=== PATIENT | female | born 1975 | race Caucasian/White ===

== ENCOUNTER 2016-08-02 15:22 | Emergency (ER) | payer OTHER ==
--- NOTE | 2016-08-02 18:35 | ED NURSING NOTES ---
Clinical Report - Nurses [facility] [place] [address] 08/02/2016 15:24 Patient: LORA ROJAS TRIAGE Triage time 15:30. Acuity: LEVEL 3. Chief Complaint: LEFT LOWER EXTREMITY PAIN and SWELLING. Location of symptoms- left leg. Alert. --15:34 Estela Mock R.N. 15:30 08/02/16. BP: 137/92. HR: 110. RR: 20. O2 saturation: 99%. Temp: 98.3 F. Pain level now 01/12. --15:34 Estela Mock R.N. Weight: 92.9 kg stated. Height/Length: 64 inches Per Patient. BMI: 35.2. --15:33 Estela Mock R.N. Medications None. --15:32 Estela Mock R.N. Allergies None. --15:32 Estela Mock R.N. History Arrived by private vehicle. Historian: patient. Primary physician (none). ( Pt had trauma to Left ankle about 10 days ago and than healed but on the flight home her leg swelled and now continues to have pain). She has had swelling. --15:34 Estela Mock R.N. PROBLEMS: no known problems. ADDITIONAL SURGERIES: Bilateral Tubal Ligation. Leg surgery. --15:33 Estela Mock R.N. PHYSICAL ASSESSMENT GENERAL / NEURO / PSYCH: Alert. Appears anxious. EXTREMITIES: Limited ROM present. Calf tenderness. Left leg: tenderness, swelling and erythema. SKIN: Skin is warm and dry. --15:35 Estela Mock R.N. EXTREMITIES: ( denies SOB or chest pain). --15:35 Estela Mock R.N. NURSING PROGRESS NOTES Patient identifiers checked. Call light placed in reach. Patient ready for evaluation- PA notified. --15:35 Estela Mock R.N. Patient waiting for (Ultra sound). ( Resting quietly awaiting ultra sound). --17:08 Estela Mock R.N. The patient is resting quietly. Overall patient status is the same. GENERAL / NEURO / PSYCH: Alert. Call light placed in reach. --18:15 Estela Mock R.N. 18:14 08/02/16. BP: 148/81. HR: 83. RR: 16. O2 saturation: 100%. Pain level now 7/10. --18:15 Estela Mock R.N. Patient waiting for disposition. --18:15 Estela Mock R.N. DISPOSITION / DISCHARGE 18:40 08/02/16. Departure time: 183. Condition at departure: improved and stable. No learning barriers present. Discharge instructions provided and reviewed with the patient. Reviewed medication(s) side effects, precautions, dosing and course information. Patient verbalized understanding. Written instructions provided in Zimbabwean. The patient was discharged by the nurse practitioner. She was discharged home and accompanied by spouse. She left the Emergency Department ambulatory and via private vehicle. Spouse driving. --18:41 Paola Barksdale R.N. 18:39 08/02/16. BP: 124/76. HR: 81. RR: 16. O2 saturation: 100% on room air. Pain level now 6/10. --18:41 Paola Barksdale R.N. Locked/Released at 08/02/2016 18:58 by Paola Barksdale R.N.
--- NOTE | 2016-08-02 18:35 | ED ORDER SUMMARY ---
..... Patient: LORA ROJAS OrderSheet [facility] VisitID: [id number] [address] [place] [address] 41y, F Registration Date/Time: 08/02/2016 ORDER SHEET Weight: 92.9 kg (stated) Allergies: None GENERAL ORDERS: Tibia/Fibula Left Urgent (15:37 08/02/2016 HBivens A.R.N.P.) (Ack 15:49 LTapper) (18:05 LTapper) US Venous Left Urgent (15:37 08/02/2016 HBivens A.R.N.P.) (Ack 15:49 LTapper) (18:05 LTapper) MEDICATION ORDERS: IV FLUIDS: ORDER SHEET NOTES: [Electronically signed by Paola BarksdaleNAndrew (18:58 08/02/2016)] [Electronically signed by Stephanie Sanchez.R.N.P. (18:58 08/02/2016)] [Electronically locked/signed by Paola BarksdaleNAndrew (18:58 08/02/2016)]
--- NOTE | 2016-08-02 18:35 | ED ORDER SUMMARY ---
..... Patient: LORA ROJAS OrderSheet [facility] VisitID: [id number] [address] [place] [address] 41y, F Registration Date/Time: 08/02/2016 ORDER SHEET Weight: 92.9 kg (stated) Allergies: None GENERAL ORDERS: Tibia/Fibula Left Urgent (15:37 08/02/2016 HBivens A.R.N.P.) (Ack 15:49 LTapper) (18:05 LTapper) US Venous Left Urgent (15:37 08/02/2016 HBivens A.R.N.P.) (Ack 15:49 LTapper) (18:05 LTapper) MEDICATION ORDERS: IV FLUIDS: ORDER SHEET NOTES: [Electronically signed by Paola BarksdaleNAndrew (18:58 08/02/2016)] [Electronically signed by Stephanie Sanchez.R.N.P. (18:58 08/02/2016)] [Electronically locked/signed by Paola BarksdaleNAndrew (18:58 08/02/2016)]
--- NOTE | 2016-08-02 18:35 | ED CLINICAL REPORT ---
Clinical Report - Physicians/Mid Levels [facility] [address] [place] [address] 08/02/2016 15:24 Patient: LORA ROJAS Time Seen: 15:33; initial patient contact, initial documentation, patient care assumed. Arrived- By private vehicle. Historian- patient. HISTORY OF PRESENT ILLNESS Chief Complaint: LOWER EXTREMITY PAIN and SWELLING. This started about 5 days ago and is still present. Not relieved by anything- worsened by walking. Severity is described as being moderate. The quality is noted to be "pain". No radiation. Symptoms located in the area of the left leg. The patient has had swelling, but not had redness. No difficulty walking. No bladder dysfunction, bowel dysfunction, sensory loss or motor loss. ( was on vacation approx x10 days ago, and hurt lower leg in shower, then x5 days ago flew home, since flight leg has been swollen with increased pain). Patient notes an injury. Mechanism of injury- (leg got twisted under or around shower door). (hotel). Similar symptoms previously: None. Recent medical care: Not recently seen/assessed. REVIEW OF SYSTEMS No chest pain or difficulty breathing. All systems otherwise negative, except as recorded above. PAST HISTORY See nurses notes. ( PROBLEMS: no known problems. ADDITIONAL SURGERIES: Bilateral Tubal Ligation. Leg surgery. --15:33 Estela Mock, RAndrewN.). SOCIAL HISTORY Never smoker. No alcohol use or drug use. No recent travel. Is a local resident. FAMILY HISTORY Negative. ADDITIONAL NOTES The nursing notes have been reviewed with agreement regarding the chief complaint, HPI, ROS, PMH and patient medications and allergies. PHYSICAL EXAM Vital Signs: 08/02/2016 15:30 BP: 137/92. HR: 110. RR: 20. O2 saturation: 99%. Temp: 98.3 F. Have been reviewed as normal and appear to be correct. Appearance: Alert. Oriented X3. No acute distress. Eyes: Pupils equal, round and reactive to light. Eyes normal inspection. Neck: Normal inspection. Neck supple. CVS: Normal heart rate and rhythm. Heart sounds normal. Respiratory: No respiratory distress. Breath sounds normal. Back: Normal inspection. No tenderness. ROM normal. Skin: Skin intact. Skin warm and dry. Normal skin color. Normal skin turgor. Extremities: Left leg: ecchymosis and mild tenderness located in the medial aspect of mid leg. Neurovascular intact distally. (healing good size contusion to leg, yellow/green in color with tenderness, no obvious swelling noted compared to other leg). No erythema, swelling, laceration, abrasion or puncture wound. No foreign body or deformity. No limitation of weight bearing. Lower extremities exhibit normal ROM. No lower extremity edema. Extremities otherwise negative. Gait: Normal gait. Neuro: Oriented X 3. No motor deficit. No sensory deficit. LABS, X-RAYS, AND EKG X-Rays: X-rays are normal and reveal no acute disease (and dr mcintosh). Left tib/fib negative. The X-rays were independently viewed by me. Lower Extremity Sonography: Negative study. verbal report given by [employer] Adriana no dvt normal us. PROGRESS AND PROCEDURES Patient counseled in person regarding the patient's stable condition, test results and diagnosis. 1820. Differential Diagnosis: Other possible considerations: fx, dvt, contusion. Above considerations are based on history, physical exam, X-Ray data and other information. Differential diagnosis was discussed with patient. Disposition: Discharged home in good and unchanged condition (18:35). Condition: good and stable. CLINICAL IMPRESSION Single contusion to the left lower leg.No hematoma or skin abrasion. INSTRUCTIONS Warnings: GENERAL WARNINGS: Return or contact your physician immediately if your condition worsens or changes unexpectedly, if not improving as expected, or if other problems arise. Specifically return if problem worsens. Prescription Medications: Ultram 50 mg tablets: take 1-2 orally every 6 hours as needed for pain. Dispense twenty (20). No refills. Substitution is permissible. Follow-up: Follow up with your doctor in about one week as needed. Call for an appointment. Summary of care provided to patient. Understanding of the discharge instructions verbalized by patient. (Electronically signed by Stephanie Sanchez A.R.N.P. 08/02/2016 18:58)
--- NOTE | 2016-08-02 18:35 | ED CLINICAL REPORT ---
Clinical Report - Physicians/Mid Levels [facility] [address] [place] [address] 08/02/2016 15:24 Patient: LORA ROJAS Time Seen: 15:33; initial patient contact, initial documentation, patient care assumed. Arrived- By private vehicle. Historian- patient. HISTORY OF PRESENT ILLNESS Chief Complaint: LOWER EXTREMITY PAIN and SWELLING. This started about 5 days ago and is still present. Not relieved by anything- worsened by walking. Severity is described as being moderate. The quality is noted to be "pain". No radiation. Symptoms located in the area of the left leg. The patient has had swelling, but not had redness. No difficulty walking. No bladder dysfunction, bowel dysfunction, sensory loss or motor loss. ( was on vacation approx x10 days ago, and hurt lower leg in shower, then x5 days ago flew home, since flight leg has been swollen with increased pain). Patient notes an injury. Mechanism of injury- (leg got twisted under or around shower door). (hotel). Similar symptoms previously: None. Recent medical care: Not recently seen/assessed. REVIEW OF SYSTEMS No chest pain or difficulty breathing. All systems otherwise negative, except as recorded above. PAST HISTORY See nurses notes. ( PROBLEMS: no known problems. ADDITIONAL SURGERIES: Bilateral Tubal Ligation. Leg surgery. --15:33 Estela Mock, RAndrewN.). SOCIAL HISTORY Never smoker. No alcohol use or drug use. No recent travel. Is a local resident. FAMILY HISTORY Negative. ADDITIONAL NOTES The nursing notes have been reviewed with agreement regarding the chief complaint, HPI, ROS, PMH and patient medications and allergies. PHYSICAL EXAM Vital Signs: 08/02/2016 15:30 BP: 137/92. HR: 110. RR: 20. O2 saturation: 99%. Temp: 98.3 F. Have been reviewed as normal and appear to be correct. Appearance: Alert. Oriented X3. No acute distress. Eyes: Pupils equal, round and reactive to light. Eyes normal inspection. Neck: Normal inspection. Neck supple. CVS: Normal heart rate and rhythm. Heart sounds normal. Respiratory: No respiratory distress. Breath sounds normal. Back: Normal inspection. No tenderness. ROM normal. Skin: Skin intact. Skin warm and dry. Normal skin color. Normal skin turgor. Extremities: Left leg: ecchymosis and mild tenderness located in the medial aspect of mid leg. Neurovascular intact distally. (healing good size contusion to leg, yellow/green in color with tenderness, no obvious swelling noted compared to other leg). No erythema, swelling, laceration, abrasion or puncture wound. No foreign body or deformity. No limitation of weight bearing. Lower extremities exhibit normal ROM. No lower extremity edema. Extremities otherwise negative. Gait: Normal gait. Neuro: Oriented X 3. No motor deficit. No sensory deficit. LABS, X-RAYS, AND EKG X-Rays: X-rays are normal and reveal no acute disease (and dr mcintosh). Left tib/fib negative. The X-rays were independently viewed by me. Lower Extremity Sonography: Negative study. verbal report given by [employer] Adriana no dvt normal us. PROGRESS AND PROCEDURES Patient counseled in person regarding the patient's stable condition, test results and diagnosis. 1820. Differential Diagnosis: Other possible considerations: fx, dvt, contusion. Above considerations are based on history, physical exam, X-Ray data and other information. Differential diagnosis was discussed with patient. Disposition: Discharged home in good and unchanged condition (18:35). Condition: good and stable. CLINICAL IMPRESSION Single contusion to the left lower leg.No hematoma or skin abrasion. INSTRUCTIONS Warnings: GENERAL WARNINGS: Return or contact your physician immediately if your condition worsens or changes unexpectedly, if not improving as expected, or if other problems arise. Specifically return if problem worsens. Prescription Medications: Ultram 50 mg tablets: take 1-2 orally every 6 hours as needed for pain. Dispense twenty (20). No refills. Substitution is permissible. Follow-up: Follow up with your doctor in about one week as needed. Call for an appointment. Summary of care provided to patient. Understanding of the discharge instructions verbalized by patient. (Electronically signed by Stephanie Sanchez A.R.N.P. 08/02/2016 18:58)
--- NOTE | 2016-08-02 18:35 | ED NURSING NOTES ---
Clinical Report - Nurses [facility] [place] [address] 08/02/2016 15:24 Patient: LORA ROJAS TRIAGE Triage time 15:30. Acuity: LEVEL 3. Chief Complaint: LEFT LOWER EXTREMITY PAIN and SWELLING. Location of symptoms- left leg. Alert. --15:34 Estela Mock R.N. 15:30 08/02/16. BP: 137/92. HR: 110. RR: 20. O2 saturation: 99%. Temp: 98.3 F. Pain level now 01/12. --15:34 Estela Mock R.N. Weight: 92.9 kg stated. Height/Length: 64 inches Per Patient. BMI: 35.2. --15:33 Estela Mock R.N. Medications None. --15:32 Estela Mock R.N. Allergies None. --15:32 Estela Mock R.N. History Arrived by private vehicle. Historian: patient. Primary physician (none). ( Pt had trauma to Left ankle about 10 days ago and than healed but on the flight home her leg swelled and now continues to have pain). She has had swelling. --15:34 Estela Mock R.N. PROBLEMS: no known problems. ADDITIONAL SURGERIES: Bilateral Tubal Ligation. Leg surgery. --15:33 Estela Mock R.N. PHYSICAL ASSESSMENT GENERAL / NEURO / PSYCH: Alert. Appears anxious. EXTREMITIES: Limited ROM present. Calf tenderness. Left leg: tenderness, swelling and erythema. SKIN: Skin is warm and dry. --15:35 Estela Mock R.N. EXTREMITIES: ( denies SOB or chest pain). --15:35 Estela Mock R.N. NURSING PROGRESS NOTES Patient identifiers checked. Call light placed in reach. Patient ready for evaluation- PA notified. --15:35 Estela Mock R.N. Patient waiting for (Ultra sound). ( Resting quietly awaiting ultra sound). --17:08 Estela Mock R.N. The patient is resting quietly. Overall patient status is the same. GENERAL / NEURO / PSYCH: Alert. Call light placed in reach. --18:15 Estela Mock R.N. 18:14 08/02/16. BP: 148/81. HR: 83. RR: 16. O2 saturation: 100%. Pain level now 7/10. --18:15 Estela Mock R.N. Patient waiting for disposition. --18:15 Estela Mock R.N. DISPOSITION / DISCHARGE 18:40 08/02/16. Departure time: 183. Condition at departure: improved and stable. No learning barriers present. Discharge instructions provided and reviewed with the patient. Reviewed medication(s) side effects, precautions, dosing and course information. Patient verbalized understanding. Written instructions provided in Chinese. The patient was discharged by the nurse practitioner. She was discharged home and accompanied by spouse. She left the Emergency Department ambulatory and via private vehicle. Spouse driving. --18:41 Paola Barksdale R.N. 18:39 08/02/16. BP: 124/76. HR: 81. RR: 16. O2 saturation: 100% on room air. Pain level now 6/10. --18:41 Paola Braksdale R.N. Locked/Released at 08/02/2016 18:58 by Paola Barksdale R.N.
--- NOTE | 2016-08-02 18:59 | ED DISCHARGE INSTRUCTIONS ---
Patient: LORA ROJAS General Instructions [facility] VisitID: [id number] [place] [address] 41y, F Registration Date/Time: 08/02/2016 Single contusion to the left lower leg.No hematoma or skin abrasion. INSTRUCTIONS Warnings: GENERAL WARNINGS: Return or contact your physician immediately if your condition worsens or changes unexpectedly, if not improving as expected, or if other problems arise. Specifically return if problem worsens. Prescription Medications: Ultram 50 mg tablets: take 1-2 orally every 6 hours as needed for pain. Dispense twenty (20). No refills. Substitution is permissible. Follow-up: Follow up with your doctor in about one week as needed. Call for an appointment. Summary of care provided to patient. Understanding of the discharge instructions verbalized by patient. ADDITIONAL INFORMATION Contusion:Lower Extremity You have a CONTUSION of your LOWER extremity (leg, knee, ankle, foot, or toes). This causes local pain, swelling and sometimes bruising. There are no broken bones. This injury may take from a few days to a few weeks to heal. Home Care: 1) Keep your leg elevated to reduce pain and swelling. When sleeping, place a pillow under the injured leg. When sitting, support the injured leg so it is level with your waist. This is very important during the first 48 hours. 2) If CRUTCHES have been advised, do not bear full weight on the injured leg until you can do so without pain. You may return to sports when you are able to hop and run on the injured leg without pain. 3) Apply an ice pack (ice cubes in a plastic bag, wrapped in a towel) over the injured area for 20 minutes every 1-2 hours the first day for pain relief. Continue this 3-4 times a day until the pain and swelling goes away. 4) You may use acetaminophen (Tylenol) or ibuprofen (Motrin, Advil) to control pain, unless another pain medicine was prescribed. [ NOTE : If you have chronic liver or kidney disease or ever had a stomach ulcer or GI bleeding, talk with your doctor before using these medicines.] Follow Up with your doctor or this facility if you are not starting to improve within the next THREE days. [NOTE: If X-rays were taken, they will be reviewed by a radiologist. You will be notified of any new findings that may affect your care.] Get Prompt Medical Attention if any of the following occur: -- Pain or swelling increases -- Toes become cold, blue, numb or tingly -- Redness, warmth or drainage from the skin Tramadol Hydrochloride Oral tablet What is this medicine? TRAMADOL (TRA ma dole) is a pain reliever. It is used to treat moderate to severe pain in adults. How should I use this medicine? Take this medicine by mouth with a full glass of water. Follow the directions on the prescription label. If the medicine upsets your stomach, take it with food or milk. Do not take more medicine than you are told to take. Talk to your well logger regarding the use of this medicine in children. Special care may be needed. What side effects may I notice from receiving this medicine? Side effects that you should report to your doctor or health direct care worker as soon as possible: allergic reactions like skin rash, itching or hives, swelling of the face, lips, or tongue breathing difficulties, wheezing confusion itching light headedness or fainting spells redness, blistering, peeling or loosening of the skin, including inside the mouth seizures Side effects that usually do not require medical attention (report to your doctor or health direct care worker if they continue or are bothersome): constipation dizziness drowsiness headache nausea, vomiting What may interact with this medicine? Do not take this medicine with any of the following medications: MAOIs like Carbex, Eldepryl, Marplan, Nardil, and Parnate This medicine may also interact with the following medications: alcohol or medicines that contain alcohol antihistamines benzodiazepines bupropion carbamazepine or oxcarbazepine clozapine cyclobenzaprine digoxin furazolidone linezolid medicines for depression, anxiety, or psychotic disturbances medicines for migraine headache like almotriptan, eletriptan, frovatriptan, naratriptan, rizatriptan, sumatriptan, zolmitriptan medicines for pain like pentazocine, buprenorphine, butorphanol, meperidine, nalbuphine, and propoxyphene medicines for sleep muscle relaxants naltrexone phenobarbital phenothiazines like perphenazine, thioridazine, chlorpromazine, mesoridazine, fluphenazine, prochlorperazine, promazine, and trifluoperazine procarbazine warfarin What if I miss a dose? If you miss a dose, take it as soon as you can. If it is almost time for your next dose, take only that dose. Do not take double or extra doses. Where should I keep my medicine? Keep out of the reach of children. Store at room temperature between 15 and 30 degrees C (59 and 86 degrees F). Keep container tightly closed. Throw away any unused medicine after the expiration date. What should I tell my health care provider before I take this medicine? They need to know if you have any of these conditions: brain tumor depression drug abuse or addiction head injury if you frequently drink alcohol containing drinks kidney disease or trouble passing urine liver disease lung disease, asthma, or breathing problems seizures or epilepsy suicidal thoughts, plans, or attempt; a previous suicide attempt by you or a family member an unusual or allergic reaction to tramadol, codeine, other medicines, foods, dyes, or preservatives or trying to get breast-feeding What should I watch for while using this medicine? Tell your doctor or health direct care worker if your pain does not go away, if it gets worse, or if you have new or a different type of pain. You may develop tolerance to the medicine. Tolerance means that you will need a higher dose of the medicine for pain relief. Tolerance is normal and is expected if you take this medicine for a long time. Do not suddenly stop taking your medicine because you may develop a severe reaction. Your body becomes used to the medicine. This does NOT mean you are addicted. Addiction is a behavior related to getting and using a drug for a non-medical reason. If you have pain, you have a medical reason to take pain medicine. Your doctor will tell you how much medicine to take. If your doctor wants you to stop the medicine, the dose will be slowly lowered over time to avoid any side effects. You may get drowsy or dizzy. Do not drive, use machinery, or do anything that needs mental alertness until you know how this medicine affects you. Do not stand or sit up quickly, especially if you are an older patient. This reduces the risk of dizzy or fainting spells. Alcohol can increase or decrease the effects of this medicine. Avoid alcoholic drinks. You may have constipation. Try to have a bowel movement at least every 2 to 3 days. If you do not have a bowel movement for 3 days, call your doctor or health direct care worker. Your mouth may get dry. Chewing sugarless gum or sucking hard candy, and drinking plenty of water may help. Contact your doctor if the problem does not go away or is severe. You have been given the following additional information: Contusion, Lower Extremity Tramadol Hydrochloride Oral tablet (Electronically signed by Stephanie Sanchez A.R.NAndrewP. 08/02/2016 18:58)
--- NOTE | 2016-08-02 18:59 | ED MAR SUMMARY ---
..... Medication Administration Record [facility] [address] [place], [place] [id number] Patient: LORA ROJAS Visit ID: [id number] 41y, F Weight: 92.9 kg Height/Length: 64 in BMI: 35.2 ALLERGIES: None
--- NOTE | 2016-08-02 18:59 | ED MAR SUMMARY ---
..... Medication Administration Record [facility] [address] [place], [place] [id number] Patient: LORA ROJAS Visit ID: [id number] 41y, F Weight: 92.9 kg Height/Length: 64 in BMI: 35.2 ALLERGIES: None
--- NOTE | 2016-08-02 18:59 | ED MED RECONCILIATION SUMMARY ---
Patient: LOAR ROJAS Medication Reconciliation Report [facility] VisitID: [id number] [address] [place] [address] 41y, F Registration Date/Time: 08/02/2016 Weight: 92.9 kg Height/Length: 64 in. BMI: 35.2 ALLERGIES: None The patient's Home Medications are listed below: NONE. The source(s) of the original Home Medication information: Not obtained. The following Medications were given to the patient in the Emergency Department: None. The following Medications were prescribed to the patient: Ultram 50 mg tablets: take 1-2 orally every 6 hours as needed for pain. Dispense twenty (20). No refills. Substitution is permissible. -- Stephanie Sanchez A.R.N.P.
--- NOTE | 2016-08-02 18:59 | ED DISCHARGE INSTRUCTIONS ---
Patient: LORA ROJAS General Instructions [facility] VisitID: [id number] [place] [address] 41y, F Registration Date/Time: 08/02/2016 Single contusion to the left lower leg.No hematoma or skin abrasion. INSTRUCTIONS Warnings: GENERAL WARNINGS: Return or contact your physician immediately if your condition worsens or changes unexpectedly, if not improving as expected, or if other problems arise. Specifically return if problem worsens. Prescription Medications: Ultram 50 mg tablets: take 1-2 orally every 6 hours as needed for pain. Dispense twenty (20). No refills. Substitution is permissible. Follow-up: Follow up with your doctor in about one week as needed. Call for an appointment. Summary of care provided to patient. Understanding of the discharge instructions verbalized by patient. ADDITIONAL INFORMATION Contusion:Lower Extremity You have a CONTUSION of your LOWER extremity (leg, knee, ankle, foot, or toes). This causes local pain, swelling and sometimes bruising. There are no broken bones. This injury may take from a few days to a few weeks to heal. Home Care: 1) Keep your leg elevated to reduce pain and swelling. When sleeping, place a pillow under the injured leg. When sitting, support the injured leg so it is level with your waist. This is very important during the first 48 hours. 2) If CRUTCHES have been advised, do not bear full weight on the injured leg until you can do so without pain. You may return to sports when you are able to hop and run on the injured leg without pain. 3) Apply an ice pack (ice cubes in a plastic bag, wrapped in a towel) over the injured area for 20 minutes every 1-2 hours the first day for pain relief. Continue this 3-4 times a day until the pain and swelling goes away. 4) You may use acetaminophen (Tylenol) or ibuprofen (Motrin, Advil) to control pain, unless another pain medicine was prescribed. [ NOTE : If you have chronic liver or kidney disease or ever had a stomach ulcer or GI bleeding, talk with your doctor before using these medicines.] Follow Up with your doctor or this facility if you are not starting to improve within the next THREE days. [NOTE: If X-rays were taken, they will be reviewed by a radiologist. You will be notified of any new findings that may affect your care.] Get Prompt Medical Attention if any of the following occur: -- Pain or swelling increases -- Toes become cold, blue, numb or tingly -- Redness, warmth or drainage from the skin Tramadol Hydrochloride Oral tablet What is this medicine? TRAMADOL (TRA ma dole) is a pain reliever. It is used to treat moderate to severe pain in adults. How should I use this medicine? Take this medicine by mouth with a full glass of water. Follow the directions on the prescription label. If the medicine upsets your stomach, take it with food or milk. Do not take more medicine than you are told to take. Talk to your application support engineer regarding the use of this medicine in children. Special care may be needed. What side effects may I notice from receiving this medicine? Side effects that you should report to your doctor or health personal caregiver as soon as possible: allergic reactions like skin rash, itching or hives, swelling of the face, lips, or tongue breathing difficulties, wheezing confusion itching light headedness or fainting spells redness, blistering, peeling or loosening of the skin, including inside the mouth seizures Side effects that usually do not require medical attention (report to your doctor or health personal caregiver if they continue or are bothersome): constipation dizziness drowsiness headache nausea, vomiting What may interact with this medicine? Do not take this medicine with any of the following medications: MAOIs like Carbex, Eldepryl, Marplan, Nardil, and Parnate This medicine may also interact with the following medications: alcohol or medicines that contain alcohol antihistamines benzodiazepines bupropion carbamazepine or oxcarbazepine clozapine cyclobenzaprine digoxin furazolidone linezolid medicines for depression, anxiety, or psychotic disturbances medicines for migraine headache like almotriptan, eletriptan, frovatriptan, naratriptan, rizatriptan, sumatriptan, zolmitriptan medicines for pain like pentazocine, buprenorphine, butorphanol, meperidine, nalbuphine, and propoxyphene medicines for sleep muscle relaxants naltrexone phenobarbital phenothiazines like perphenazine, thioridazine, chlorpromazine, mesoridazine, fluphenazine, prochlorperazine, promazine, and trifluoperazine procarbazine warfarin What if I miss a dose? If you miss a dose, take it as soon as you can. If it is almost time for your next dose, take only that dose. Do not take double or extra doses. Where should I keep my medicine? Keep out of the reach of children. Store at room temperature between 15 and 30 degrees C (59 and 86 degrees F). Keep container tightly closed. Throw away any unused medicine after the expiration date. What should I tell my health care provider before I take this medicine? They need to know if you have any of these conditions: brain tumor depression drug abuse or addiction head injury if you frequently drink alcohol containing drinks kidney disease or trouble passing urine liver disease lung disease, asthma, or breathing problems seizures or epilepsy suicidal thoughts, plans, or attempt; a previous suicide attempt by you or a family member an unusual or allergic reaction to tramadol, codeine, other medicines, foods, dyes, or preservatives or trying to get breast-feeding What should I watch for while using this medicine? Tell your doctor or health personal caregiver if your pain does not go away, if it gets worse, or if you have new or a different type of pain. You may develop tolerance to the medicine. Tolerance means that you will need a higher dose of the medicine for pain relief. Tolerance is normal and is expected if you take this medicine for a long time. Do not suddenly stop taking your medicine because you may develop a severe reaction. Your body becomes used to the medicine. This does NOT mean you are addicted. Addiction is a behavior related to getting and using a drug for a non-medical reason. If you have pain, you have a medical reason to take pain medicine. Your doctor will tell you how much medicine to take. If your doctor wants you to stop the medicine, the dose will be slowly lowered over time to avoid any side effects. You may get drowsy or dizzy. Do not drive, use machinery, or do anything that needs mental alertness until you know how this medicine affects you. Do not stand or sit up quickly, especially if you are an older patient. This reduces the risk of dizzy or fainting spells. Alcohol can increase or decrease the effects of this medicine. Avoid alcoholic drinks. You may have constipation. Try to have a bowel movement at least every 2 to 3 days. If you do not have a bowel movement for 3 days, call your doctor or health personal caregiver. Your mouth may get dry. Chewing sugarless gum or sucking hard candy, and drinking plenty of water may help. Contact your doctor if the problem does not go away or is severe. You have been given the following additional information: Contusion, Lower Extremity Tramadol Hydrochloride Oral tablet (Electronically signed by Stephanie Sacnhez A.R.NAndrewP. 08/02/2016 18:58)
--- NOTE | 2016-08-02 18:59 | ED MED RECONCILIATION SUMMARY ---
Patient: LORA ROJAS Medication Reconciliation Report [facility] VisitID: [id number] [address] [place] [address] 41y, F Registration Date/Time: 08/02/2016 Weight: 92.9 kg Height/Length: 64 in. BMI: 35.2 ALLERGIES: None The patient's Home Medications are listed below: NONE. The source(s) of the original Home Medication information: Not obtained. The following Medications were given to the patient in the Emergency Department: None. The following Medications were prescribed to the patient: Ultram 50 mg tablets: take 1-2 orally every 6 hours as needed for pain. Dispense twenty (20). No refills. Substitution is permissible. -- Stephanie Sanchez A.R.N.P.
--- NOTE | 2016-08-02 19:25 | DIAGNOSTIC IMAGING REPORT ---
PROCEDURE: XR TIBIA AND FIBULA - LEFT INDICATION: TRAUMA/INJURY TECHNIQUE: Two views of the left tibia and fibula . COMPARISON: None. FINDINGS: Normal mineralization. No fractures. Normal osseous alignment. No suspicious soft-tissue calcification or radiodense foreign bodies. IMPRESSION: 1. Normal study
--- NOTE | 2016-08-02 19:36 | DIAGNOSTIC IMAGING REPORT ---
PROCEDURE: US VENOUS - LEFT EXT INDICATION: Left lower extremity swelling, initial encounter TECHNIQUE: Duplex sonography of the deep venous system in the left lower extremity was performed. Compression and augmentation techniques were used. COMPARISON: None. FINDINGS: Normal compression of the greater saphenous, common femoral, superficial femoral, popliteal, peroneal, and posterior tibial veins. Normal augmentation. There is no evidence of superficial or deep venous thrombosis. Small amount of fluid collection between the fascial planes of the mid calf, consistent with post-traumatic changes. IMPRESSION: 1. Negative venous ultrasound of the left lower extremity. 2. Small amount of fluid between the fascial planes of the mid calf consistent with post-traumatic changes
== END 2016-08-02 18:39 | disposition home or self-care (01) ==
LOC: ED SRH 15:22
DX: S80.12XA Contusion of left lower leg, initial encounter (principal); X50.1XXA Overexertion from prolonged static or awkward postures, initial encounter; Y93.E1 Activity, personal bathing and showering; Y92.59 Other trade areas as the place of occurrence of the external cause; Y99.8 Other external cause status

== ENCOUNTER 2016-10-31 10:22 | Outpatient (CLI) | payer OTHER ==
--- NOTE | 2016-10-31 10:45 | DIAGNOSTIC IMAGING REPORT ---
PROCEDURE: XR SHOULDER 2 OR MORE VW-RIGHT INDICATION: PAIN IN RIGHT SHOULDER TECHNIQUE: Three views. COMPARISON: None. FINDINGS: Osseous structures and joint spaces are normal. IMPRESSION: 1. Normal right shoulder.
== END 2016-10-31 23:00 ==
LOC: XR SRH 10:22
DX: M25.511 Pain in right shoulder (principal)